=== PATIENT | male | born 1965 | race Caucasian/White ===

== ENCOUNTER 2018-03-08 21:36 | Emergency (ER) | payer BC ==
--- NOTE | 2018-03-08 22:12 | EDPHYS ---
Physician Documentation [facility] Name: Andrew Sears Jr Age: 52 yrs Sex: Male : 1965 Arrival Date: 03/08/2018 Time: 21:37 Bed 18 Private MD: ED Physician Derrell Gardiner HPI: 03/08 22:09 This 52 yrs old Male presents to ER via Ambulatory with complaints of Neck gs Pain, >24Hrs Old. 22:09 The patient or guardian complains of pain, that is acute. The symptoms are located on gs the posterior aspect of left shoulder. Onset: The symptoms/episode began/occurred 4 week(s) ago, and became persistent. Associated signs and symptoms: Pertinent positives: tingling, intermittent left arm, Pertinent negatives: headache, bladder incontinence, bowel incontinence. The pain radiates to the left bicep. Modifying factors: the symptoms are aggravated by movement. Severity of symptoms: At their worst the symptoms were moderate, in the emergency department the symptoms are unchanged. The patient has not experienced similar symptoms in the past. Historical: - Allergies: 21:44 No Known Allergies; aj1 - Home Meds: 21:44 Metoprolol Tartrate Oral [Active]; losartan-hydrochlorothiazide oral oral [Active]; aj1 atorvastatin oral oral [Active]; - PMHx: 21:44 mitral valve prolaspse; Hypertension; Hyperlipidemia; aj1 - PSHx: 21:44 None; aj1 - Immunization history:: Flu vaccine is not up to date. - Social history:: Smoking status: Patient/guardian denies using tobacco. - Ebola Screening: : Patient denies travel to an Ebola-affected area in the 21 days before illness onset. ROS: 22:09 All other systems are negative. gs 22:12 Cardiovascular: Negative for chest pain, orthopnea, palpitations, acute changes. gs 22:12 Respiratory: Negative for pleurisy, shortness of breath. Exam: 22:09 Head/Face: Normocephalic, atraumatic. Eyes: Pupils equal round and reactive to light, gs extra-ocular motions intact. Lids and lashes normal. Conjunctiva and sclera are non-icteric and not injected. Cornea within normal limits. Periorbital areas with no swelling, redness, or edema. ENT: Nares patent. No nasal discharge, no septal abnormalities noted. Tympanic membranes are normal and external auditory canals are clear. Oropharynx with no redness, swelling, or masses, exudates, or evidence of obstruction, uvula midline. Mucous membranes moist. Neck: Trachea midline, no thyromegaly or masses palpated, and no cervical lymphadenopathy. Supple, full range of motion without nuchal rigidity, or vertebral point tenderness. No Meningismus. Chest/axilla: Normal chest wall appearance and motion. Nontender with no deformity. No lesions are appreciated. Cardiovascular: Regular rate and rhythm with a normal S1 and S2. No gallops, murmurs, or rubs. Normal PMI, no JVD. No pulse deficits. Respiratory: Lungs have equal breath sounds bilaterally, clear to auscultation and percussion. No rales, rhonchi or wheezes noted. No increased work of breathing, no retractions or nasal flaring. Abdomen/GI: Soft, non-tender, with normal bowel sounds. No distension or tympany. No guarding or rebound. No evidence of tenderness throughout. Skin: Warm, dry with normal turgor. Normal color with no rashes, no lesions, and no evidence of cellulitis. MS/ Extremity: Pulses equal, no cyanosis. Neurovascular intact. Full, normal range of motion. Neuro: Awake and alert, GCS 15, oriented to person, place, time, and situation. Cranial nerves II-XII grossly intact. Motor strength 5/5 in all extremities. Sensory grossly intact. Cerebellar exam normal. Normal gait. 22:09 Constitutional: The patient appears alert, awake. 22:09 Back: pain, that is mild, of the left trapezius. Vital Signs: 21:44 BP 156 / 95; Pulse 69; Resp 16; Temp 97.8(T); Pulse Ox 97% on R/A; Weight 102.06 kg aj1 (R); Height 6 ft. 1 in. (185.42 cm) (R); Pain 3/10; 21:44 Body Mass Index 29.68 (102.06 kg, 185.42 cm) aj1 MDM: 22:07 Patient medically screened. gs 22:09 Differential diagnosis: Cervical Disc Herniation Cervical Discogenic Pain Cervical gs Raiculopathy. Data reviewed: vital signs, nurses notes. Response to treatment: There is no appreciated change of the patient's symptoms at this time, and as a result, I will discharge patient. Administered Medications: No medications were administered Disposition: 03/08/18 22:11 Discharged to Home. Impression: Cervical disc disorder with radiculopathy. - Condition is Stable. - Discharge Instructions: Cervical Radiculopathy, [id number]. - Prescriptions for Naprosyn 500 mg Oral Tablet - take 1 tablet by ORAL route 2 times per day take with food; 14 tablet. Prednisone 20 mg Oral Tablet - take 1 tablet by ORAL route once daily for 5 days; 5 tablet. Tylenol- Codeine #4 300-60 mg Oral Tablet - take 1 tablet by ORAL route every 6 hours As needed; 12 tablet. Pepcid 20 mg Oral Tablet - take 1 tablet by ORAL route once daily; 14 tablet. - Medication Reconciliation Form, Thank You Letter, Antibiotic Education, Prescription Opioid Use, Work release form form. - Follow up: Chad Banda DO; When: 2 - 3 days; Reason: Re-evaluation by your physician. Follow up: Chaz Damico MD; When: 2 - 3 days; Reason: Re-evaluation by your physician. Signatures: Trupti Messina RN RN aj1 Derrell Gardiner MD MD gs Pedro Bah RN RN jd3 Corrections: (The following items were deleted from the chart) 22:24 22:11 03/08/2018 22:11 Discharged to Home. Impression: Cervical disc disorder with jd3 radiculopathy. Condition is Stable. Forms are Medication Reconciliation Form, Thank You Letter, Antibiotic Education, Prescription Opioid Use. Follow up: Chad Banda; When: 2 - 3 days; Reason: Re-evaluation by your physician. Follow up: Cahz Damico; When: 2 - 3 days; Reason: Re-evaluation by your physician. gs
--- NOTE | 2018-03-08 22:12 | ER ---
Nurse's Notes [facility] Name: Andrew Sears Jr Age: 52 yrs Sex: Male : 1965 Arrival Date: 03/08/2018 Time: 21:37 Bed 18 Private MD: Diagnosis: Cervical disc disorder with radiculopathy Presentation: 03/08 21:41 Presenting complaint: Patient states: left arm pain and numbness for the past 4 weeks. aj1 Patient states the pain starts up in his neck and when he puts his arm in a certain position it starts to feel numb. Patient states the pain in his left arm is making it difficult for him to sleep. States he has tried multiple OTC medications with no relief. [employer] are equal bilaterally, gait is steady, speech is clear. Transition of care: patient was not received from another setting of care. Onset of symptoms was January 2018. Risk Assessment: Do you want to hurt yourself or someone else? Patient reports no desire to harm self or others. Initial Sepsis Screen: Does the patient meet any 2 criteria? No. Patient's initial sepsis screen is negative. Does the patient have a suspected source of infection? No. Patient's initial sepsis screen is negative. Care prior to arrival: None. 21:41 Method Of Arrival: Ambulatory aj1 21:41 Acuity: GRACIE 3 aj1 Triage Assessment: 21:44 General: Appears in no apparent distress. comfortable, Behavior is calm, cooperative, aj1 appropriate for age. Pain: Complains of pain in left arm Pain currently is 3 out of 10 on a pain scale. at worst was 9 out of 10 on a pain scale. Neuro: Level of Consciousness is awake, alert, obeys commands, Oriented to person, place, time, situation, [employer] are equal bilaterally Moves all extremities. Full function Gait is steady, Speech is normal, Facial symmetry appears normal, Pupils are PERRLA, Numbness in left arm that is intermittent. Cardiovascular: Patient's skin is warm and dry. Respiratory: Airway is patent Respiratory effort is even, unlabored, Respiratory pattern is regular, symmetrical. Historical: - Allergies: :44 No Known Allergies; aj1 - Home Meds: :44 Metoprolol Tartrate Oral [Active]; losartan-hydrochlorothiazide oral oral [Active]; aj1 atorvastatin oral oral [Active]; - PMHx: 21:44 mitral valve prolaspse; Hypertension; Hyperlipidemia; aj1 - PSHx: 21:44 None; aj1 - Immunization history:: Flu vaccine is not up to date. - Social history:: Smoking status: Patient/guardian denies using tobacco. - Ebola Screening: : Patient denies travel to an Ebola-affected area in the 21 days before illness onset. Screenin:02 Abuse screen: Denies threats or abuse. Nutritional screening: No deficits noted. jd3 Tuberculosis screening: No symptoms or risk factors identified. Fall Risk Ambulatory Aid- None/Bed Rest/Nurse Assist (0 pts). Gait- Normal/Bed Rest/Wheelchair (0 pts) Mental Status- Oriented to own ability (0 pts). Total Mckeon Fall Scale indicates No Risk (0-24 pts). Assessment: 21:58 General: Appears uncomfortable, Behavior is calm, cooperative, appropriate for age. jd3 Pain: Complains of pain in left trapezius, left scapular area and posterior aspect of left shoulder Quality of pain is described as sharp, tingling, numb. Neuro: Level of Consciousness is awake, alert, obeys commands, Oriented to person, place, time, situation. Cardiovascular: Capillary refill < 3 seconds Patient's skin is warm and dry. Respiratory: Airway is patent Respiratory effort is even, unlabored, Respiratory pattern is regular, symmetrical. GI: No signs and/or symptoms were reported involving the gastrointestinal system. Abdomen is round non-distended. : No signs and/or symptoms were reported regarding the genitourinary system. EENT: No signs and/or symptoms were reported regarding the EENT system. Derm: Skin is intact, Skin is dry, Skin is normal, Skin temperature is warm. Musculoskeletal: Circulation, motion, and sensation intact. Range of motion: intact in all extremities, Reports pain in left arm numbness of left arm when moved to certain positions. 22:23 Reassessment: Patient appears in no apparent distress at this time. Patient and/or jd3 family updated on plan of care and expected duration. Pain level reassessed. Patient is alert, oriented x 3, equal unlabored respirations, skin warm/dry/pink. Vital Signs: 21:44 BP 156 / 95; Pulse 69; Resp 16; Temp 97.8(T); Pulse Ox 97% on R/A; Weight 102.06 kg aj1 (R); Height 6 ft. 1 in. (185.42 cm) (R); Pain 3/10; 21:44 Body Mass Index 29.68 (102.06 kg, 185.42 cm) [facility] ED Course: 21:37 Patient arrived in ED. am2 21:43 Triage completed. aj1 21:44 Arm band placed on. aj1 21:49 Pedro Bah RN is Primary Nurse. jd3 21:55 Derrell Gardiner MD is Attending Physician. gs 22:02 Patient has correct armband on for positive identification. Bed in low position. Call jd3 light in reach. Side rails up X 1. Adult w/ patient. 22:11 Chad Banda DO is Referral Physician. 22:11 Chaz Damico MD is Referral Physician. 22:23 No provider procedures requiring assistance completed. Patient did not have IV access jd3 during this emergency room visit. Administered Medications: No medications were administered Outcome: 22:11 Discharge ordered by . 22:24 Discharged to home ambulatory, with family. jd3 22:24 Condition: stable 22:24 Discharge instructions given to patient, family, Instructed on discharge instructions, follow up and referral plans. medication usage, Demonstrated understanding of instructions, Prescriptions given X 4. 22:24 Patient left the ED. jd3 Signatures: Trupti Messina, RN RN [facility] Razia Mendoza [facility] Derrell Gardiner MD MD Pedro Bah, TED [place]
== END 2018-03-08 22:24 | disposition home or self-care (01) ==
LOC: ER 21:36
DX: M50.10 Cervical disc disorder with radiculopathy, unspecified cervical region (principal); I10 Essential (primary) hypertension; E78.5 Hyperlipidemia, unspecified; I34.1 Nonrheumatic mitral (valve) prolapse
CPT/HCPCS: 99282